=== PATIENT | female | born 1980 | race Caucasian/White ===

== ENCOUNTER → 2016-12-01 | Outpatient (CLI) | payer OTHER | LOC: KOH-I 12:57 | DX: M79.671 Pain in right foot (principal); M25.571 Pain in right ankle and joints of right foot | CPT/HCPCS: 73600; 73620 ==

== ENCOUNTER → 2021-02-07 | Outpatient (CLI) | payer BC, OTHER | LOC: KOH-I 10:49 | DX: S82.892A Other fracture of left lower leg, initial encounter for closed fracture (principal) | CPT/HCPCS: 73610 ==

== ENCOUNTER → 2021-02-26 | Outpatient (CLI) | payer BC, OTHER | LOC: KOH-I 14:13 | DX: S82.62XA Displaced fracture of lateral malleolus of left fibula, initial encounter for closed fracture (principal) | CPT/HCPCS: 73610 ==

== ENCOUNTER → 2021-03-21 | Outpatient (CLI) | payer BC | LOC: KOH-I 13:16 | DX: S82.62XA Displaced fracture of lateral malleolus of left fibula, initial encounter for closed fracture (principal) | CPT/HCPCS: 73610 ==